=== PATIENT | female | born 1975 | race African-American/Black ===

== ENCOUNTER 2018-03-11 06:00 | Day surgery (SDC) | payer MEDICARE, OTHER ==
[~2018-03-11] VITALS: Ht 149.9 cm; Wt 77.7 kg
[~2018-03-11 06:00] MED LIST: BECL8.7A5 IH; GABA-531 PO; HYDR-4065 PO; HYDR200T4 PO; HYDR25TA PO; LORA1TAB3 PO; POTA10CA44 PO; SODIUM CHLORIDE 0.9% 1,000 ML IV ONE; TRAM50TA4 PO
[2018-03-11] MEDS ORDERED: LIDOCAINE HCL 4% 50 ML SOLUTION TP ONE (06:01)
[2018-03-11] MEDS ORDERED: BENZOCAINE 20% 50 MCG/SPRAY 57 GM TP ONE (06:01)
[2018-03-11] MEDS ORDERED: LIDOCAINE HCL 2% 30 ML JELLY TP ONE (06:01)
[2018-03-11] MEDS ORDERED: ALBUTEROL SULFATE 2.5 MG/0.5 ML NEB SOLUTION NEB ONE (06:01)
[2018-03-11] MEDS ORDERED: SODIUM CHLORIDE 0.9% 1,000 ML IV ONE (07:00)
[2018-03-11] MEDS ORDERED: HYDR200T4 PO (07:37)
[2018-03-11] MEDS ORDERED: MIDAZOLAM HCL 2 MG/2 ML VIAL ONE (08:04)
[2018-03-11] MEDS ORDERED: FentaNYL CITRATE-PF 100 MCG/2 ML VIAL ONE (08:05)
[2018-03-11] MEDS ORDERED: MethylPREDNISolone SOD SUCC 125 MG/2 ML VIAL IVP ONE (08:30)
[2018-03-11] MEDS ORDERED: OXYGEN THERAPY IH SCH (20:00)
== END 2018-03-11 10:45 | disposition home or self-care (01) ==
LOC: SURGERY 06:00
PROVIDERS: ATTEND Internal Medicine Critical Care Medicine
DX: J38.4 Edema of larynx (principal); B37.0 Candidal stomatitis; I10 Essential (primary) hypertension; J84.111 Idiopathic interstitial pneumonia, not otherwise specified; F41.9 Anxiety disorder, unspecified; F32.9 Major depressive disorder, single episode, unspecified; G47.33 Obstructive sleep apnea (adult) (pediatric); Z98.51 Tubal ligation status; Z98.890 Other specified postprocedural states; Z72.89 Other problems related to lifestyle; Z79.891 Long term (current) use of opiate analgesic; Z79.899 Other long term (current) drug therapy
CPT/HCPCS: 31623; 31624; 71045; 87015; 87070; 87205; 87220; 88108; 88184; 88185; 88312; J2250; J2930; J3010; J7030